=== PATIENT | female | born 1990 | race African-American/Black ===

== ENCOUNTER 2024-10-11 09:08 | Emergency (ER) | payer BC, OTHER ==
[~2024-10-11] VITALS: Ht 170.2 cm; Wt 110.7 kg
[2024-10-11 09:48] VITALS: BP 133/80; PULSE 74; RESP 16; TEMP 97.7; O2SAT 97
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
[2024-10-11] MEDS ORDERED: IBUP-1456 PO (10:43)
[2024-10-11] MEDS ORDERED: METH-1182 PO (10:43)
== END 2024-10-11 10:46 | disposition home or self-care (01) ==
LOC: ER 09:08
DX: S39.012A Strain of muscle, fascia and tendon of lower back, initial encounter (principal); S83.91XA Sprain of unspecified site of right knee, initial encounter; E11.9 Type 2 diabetes mellitus without complications; Z91.018 Allergy to other foods; V89.2XXA Person injured in unspecified motor-vehicle accident, traffic, initial encounter; Y93.89 Activity, other specified; Y92.488 Other paved roadways as the place of occurrence of the external cause; Y99.8 Other external cause status
CPT/HCPCS: 72100; 73562

== ENCOUNTER 2025-02-13 21:01 | Emergency (ER) | payer BC ==
[~2025-02-13] VITALS: Ht 170.2 cm; Wt 116.4 kg
[~2025-02-13 21:01] MED LIST: IBUP-1456 PO; METH-1182 PO
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
[2025-02-13] MEDS ORDERED: IBU600T PO (22:41)
[2025-02-13 22:48] VITALS: BP 131/90; PULSE 93; RESP 15; TEMP 97.7; O2SAT 95
== END 2025-02-13 22:49 | disposition home or self-care (01) ==
LOC: ER 21:01
DX: S63.631A Sprain of interphalangeal joint of left index finger, initial encounter (principal); E11.9 Type 2 diabetes mellitus without complications; Z91.010 Allergy to peanuts; W22.03XA Walked into furniture, initial encounter; Y93.89 Activity, other specified; Y92.89 Other specified places as the place of occurrence of the external cause; Y99.8 Other external cause status
CPT/HCPCS: 29130; 73130